=== PATIENT | male | born 1995 | race Two or more races ===

== ENCOUNTER 2019-02-23 19:51 | Emergency (ER) | payer BC ==
--- NOTE | 2019-02-23 19:58 | EDM.PDOC ---
ED HPI GENERAL MEDICAL PROBLEM - General Chief Complaint: Chest Pain Stated Complaint: CHEST PAINS Time Seen by Provider: 02/23/19 19:54 - History of Present Illness INITIAL COMMENTS - FREE TEXT/NARRATIVE: HISTORY AND PHYSICAL: History of present illness: Patient's 23-year-old male with no significant past medical history presents with a concern of chest pain 1 month this without associated shortness of breath nausea vomiting palpitations or diaphoresis and is vaguely described Review of systems: As per history of present illness and below otherwise all systems reviewed and negative. Past medical history: As per history of present illness and as reviewed below otherwise noncontributory. Surgical history: As per history of present illness and as reviewed below otherwise noncontributory. Social history: No reported history of drug or alcohol abuse. Family history: As per history of present illness and as reviewed below otherwise noncontributory. Physical exam: HEENT: Atraumatic, normocephalic, pupils reactive, negative for conjunctival pallor or scleral icterus, mucous membranes moist, throat clear, neck supple, nontender, trachea midline. Lungs: Clear to auscultation, breath sounds equal bilaterally, chest nontender. Heart: S1S2, regular, negative for clicks, rubs, or JVD. Abdomen: Soft, nondistended, nontender. Negative for masses or hepatosplenomegaly. Negative for costovertebral tenderness. Pelvis: Stable nontender. Genitourinary: Deferred. Rectal: Deferred. Extremities: Atraumatic, negative for cords or calf pain. Neurovascular unremarkable. Neuro: Awake, alert, oriented. Cranial nerves II through XII unremarkable. Cerebellum unremarkable. Motor and sensory unremarkable throughout. Exam nonfocal. Diagnostics: Chest x-ray EKG pulse oximetry Therapeutics: None Impression: #1 atypical chest pain Definitive disposition and diagnosis as appropriate pending reevaluation and review of above. ED ROS GENERAL - Review of Systems Review Of Systems: ROS reveals no pertinent complaints other than HPI. ED EXAM, GENERAL - Physical Exam Exam: See Below (Dictation) Departure - Departure Time of Disposition: 19:57 Disposition: Home, Self-Care 01 Condition: Good Clinical Impression: Atypical chest pain - Discharge Information Additional Instructions: The following information is given to patients seen in the emergency department who are being discharged to home. This information is to outline your options for follow-up care. We provide all patients seen in our emergency department with a follow-up referral. The need for follow-up, as well as the timing and circumstances, are variable depending upon the specifics of your emergency department visit. If you don't have a primary care physician on staff, we will provide you with a referral. We always advise you to contact your personal physician following an emergency department visit to inform them of the circumstance of the visit and for follow-up with them and/or the need for any referrals to a consulting specialist. The emergency department will also refer you to a specialist when appropriate. This referral assures that you have the opportunity for followup care with a specialist. All of these measure are taken in an effort to provide you with optimal care, which includes your followup. Under all circumstances we always encourage you to contact your private physician who remains a resource for coordinating your care. When calling for followup care, please make the office aware that this follow-up is from your recent emergency room visit. If for any reason you are refused follow-up, please contact the [facility] emergency department at and asked to speak to the emergency department charge nurse. [facility] [address] [place] [id number] Follow-up primary care both call to schedule routine appointment return as needed as discussed
--- NOTE | 2019-02-23 20:34 | CR ---
Indication: Chest pain Technique: Chest 1 view Comparison: None Findings/Impression: Borderline cardiomegaly. Correlate with clinical history. Lungs and pleural spaces are clear. No acute osseous abnormality. Dictated by Lashay Silva MD @ Feb 23 2019 8:31PM Signed by Dr. Lashay Silva @ Feb 23 2019 8:33PM
== END 2019-02-23 20:32 | disposition home or self-care (01) ==
LOC: MW.ED 19:51
DX: R07.89 Other chest pain (principal)
CPT/HCPCS: 71045; 71045-26; 93005; 99283-25

== ENCOUNTER → 2020-05-01 | Day surgery (SDC) | payer OTHER ==
[~2020-05-01] MED LIST: Iopamidol 755 MG/ML 500 ML Multipack Bottle IVPUSH STA
--- NOTE | 2020-05-01 14:30 | CT ---
INDICATION: Left lower quadrant pain. TECHNIQUE: CT of the abdomen and pelvis with 100 cc Isovue 370 IV contrast. Coronal and sagittal reconstructions. COMPARISON: None. FINDINGS: The appendix is mildly dilated measuring 10 mm in diameter with surrounding inflammatory fat stranding, compatible with acute appendicitis (series 201, image 111 series 203, image 45). The inflammation contacts and mildly tethers a few loops of adjacent small bowel in the right lower quadrant. No small bowel dilation. No focal fluid collection to suggest abscess. No intraperitoneal free air or fluid. There is a 1.7 cm ovoid fat density structure adjacent to the junction of the descending and sigmoid colon and a left lower quadrant (series 201, image 112). There is mild surrounding hazy fat stranding. This could represent mild epiploic appendagitis. The liver is mildly enlarged measuring 22.8 cm in length. Diffuse hepatic steatosis. Focal fatty sparing adjacent to the gallbladder fossa. Hepatic and portal veins are patent. The gallbladder, spleen, pancreas, and adrenal glands are negative. Splenule. Symmetric enhancement of the kidneys. No hydronephrosis. No obstructing urinary calculi. Mild diffuse bladder wall thickening may be due to underdistention. The prostate gland is normal in appearance. Small bilateral fat containing inguinal hernias. Prominent right lower quadrant mesenteric lymph nodes are likely reactive. No other lymphadenopathy. The bones are unremarkable. The lung bases are clear. IMPRESSION: 1. Acute uncomplicated appendicitis. No evidence of perforation or abscess. 2. Mild epiploic appendagitis adjacent to the junction of the descending and sigmoid colon in the left lower quadrant. 3. Mild hepatomegaly with diffuse hepatic steatosis. Please note that all CT scans at this facility use dose modulation, iterative reconstruction, and/or weight-based dosing when appropriate to reduce radiation dose to as low as reasonably achievable. Dictated by Hina Greenwood MD @ May 01 2020 2:15PM Signed by Dr. Hina Greenwood @ May 01 2020 2:29PM
[2020-05-01 14:49] LABS: BLOOD UREA NITROGEN,BUN 13 mg/dL (7.0-18.0); CARBON DIOXIDE,CO2 25.6 mmol/L (21.0-32.0); CHLORIDE,CL 105 mmol/L (98-107); GLUCOSE RANDOM 89 mg/dL (74-106); POTASSIUM,K 4.3 mmol/L (3.5-5.1); SODIUM,NA 137 mmol/L (136-148)
--- NOTE | 2020-05-01 16:18 | PCM.SN.2 ---
- Free Text/Narrative Note: pt seen, chart reviewed; pt has no pain when jumping up and down and walked over 2 rounds in the hospital with no complaint; and no elevated white count and on exam, even deep palpation, has no RLQ abd pain; sent home, seek med attention, if nausea/emisis/abd pain/fever/chill; pt promised to call in the morning to of fice and seek med attention if clinically change; dictated, [id number]
--- NOTE | 2020-05-01 19:38 | CONS ---
DATE OF CONSULTATION: 05/01/2020 DATE OF : 1995 PRIMARY CARE PHYSICIAN: Carmen Hansen This is a consult from Dr. Carmen Hansen. CONSULTING QUESTION: Abdominal pain. HISTORY OF PRESENT ILLNESS: The patient is very 24-year-old gentleman and appropriately built, complaining about 4-to-5 day history of gradual onset of a left lower quadrant pain. Seen in the primary care office and workup included CAT scan, shows sigmoid colon appendages inflammation on the left side and possible mildly dilated appendix on the right side. Surgery was then consulted for possible appendicitis. The patient denied fever, chill, or diarrhea. Denied nausea. Denied right side pain at all. PAST MEDICAL HISTORY: Significant for no diabetes, MO, CVA, hypertension. PAST SURGICAL HISTORY: No abdominal surgery. ALLERGIES: Please refer to nursing for details. MEDICATION: Please refer to nursing for details. PHYSICAL EXAMINATION: GENERAL: A very pleasant gentleman, in no acute distress and the patient is very comfortable, followed me around, through two rounds in the hospital and also walked around from emergency room to the Same-day Surgery and back to the emergency room absolutely comfortable , no pain, and told patient to jump up and down, he had absolutely no pain and kind of wonder why the doctor asked him to jump up and down. HEENT: Normocephalic and atraumatic. Sclerae anicteric. LUNGS: Clear to auscultation. HEART: Regular rate and rhythm. ABDOMEN: Soft, nondistended. No pulsating tender midline abdominal structure and no mass and no pain at the McBurney point. LABORATORY DATA: White count 10. CAT scan, alluded to above. IMPRESSION: Clinically, the patient's appendicitis is highly unlikely and the patient is hungry. Because of CT image, offered patient to go surgery appendectomy; possible normal appendix as clinically he had no right side pain; pt asked for other options, pt can be observed, as appendicitis would get worse with time, usually 24 hours; pt opted the no surgery management and agreed not to take any pain meds X 24 hrs. The patient can go home and avoid taking any pain medication for the next 24 hours and only eat a little bit, like half portion of what he usually eats and call me in the morning in the office if abdominal pain, fever, chills, or any change in clinical condition. would also like to follow up with me after the weekend, this coming Tuesday morning; Long time explained to the patient, he can either have surgery or prefer this option. Patient absolutely preferred this non surgery option. He will call my office in the morning. As always, thank you for the kind referral. CRISS BATES /[id number] SHANON
== END ==
LOC: MW.CHFP 13:38 → MW.SDS 15:23
PROVIDERS: ATTEND Surgery
DX: K35.80 Unspecified acute appendicitis (principal); R16.0 Hepatomegaly, not elsewhere classified; K76.0 Fatty (change of) liver, not elsewhere classified
CPT/HCPCS: 36415; 74177; 80053; 85025; 85652; Q9967